=== PATIENT | male | born 1940 | race African-American/Black ===

== ENCOUNTER 2019-01-17 14:54 | Emergency (ER) | payer OTHER ==
[~2019-01-17] VITALS: Ht 172.7 cm; Wt 95.0 kg
[2019-01-17] MEDS ORDERED: ACETAMINOPHEN 325MG TABLET PO ONE (15:30)
[2019-01-17 15:50] VITALS: BP 124/61
== END 2019-01-17 15:53 | disposition home or self-care (01) ==
LOC: ER 14:55
DX: M79.642 Pain in left hand (principal); E78.00 Pure hypercholesterolemia, unspecified; I10 Essential (primary) hypertension; Z98.890 Other specified postprocedural states
CPT/HCPCS: 99282